=== PATIENT | female | born 1980 | race Caucasian/White ===

== ENCOUNTER 2024-07-10 07:36 | Emergency (ER) | payer OTHER ==
[~2024-07-10] VITALS: Ht 170.2 cm; Wt 60.0 kg
[2024-07-10 07:52] VITALS: O2SAT 96
[2024-07-10] MEDS ORDERED: SULF1TAB48 MT (08:20)
[2024-07-10] MEDS ORDERED: CEPH500T MT (08:20)
[2024-07-10] MEDS: LIDOCAINE HCL/EPINEPHRINE 1%-EPI 1:100,000 50ML VIAL INFIL ONE (08:39)
[2024-07-10] MEDS: LIDOCAINE HCL/EPINEPHRINE 1%-EPI 1:100,000 20ML VIAL INFIL ONE (08:39)
[2024-07-10 09:22] VITALS: BP 121/87; PULSE 87; RESP 18; TEMP 36.78072; O2SAT 99
== END 2024-07-10 09:24 | disposition home or self-care (01) ==
LOC: ER 07:36
DX: L03.317 Cellulitis of buttock (principal); Z91.013 Allergy to seafood
CPT/HCPCS: 10060; 99283; J3490; Z7610 ×2